=== PATIENT | male | born 1990 | race Hispanic/Latino ===

== ENCOUNTER 2017-12-11 19:35 | Emergency (ER) | payer MEDICAID, OTHER | END 2017-12-11 20:09 | disposition home or self-care (01) | LOC: EDH 19:35 | DX: R07.89 Other chest pain (principal); H92.01 Otalgia, right ear; M79.662 Pain in left lower leg; M79.661 Pain in right lower leg; Z72.0 Tobacco use | CPT/HCPCS: 99281 ==

== ENCOUNTER 2021-06-29 22:26 | Emergency (ER) | payer MEDICAID, OTHER ==
[~2021-06-29] VITALS: Ht 162.6 cm; Wt 68.0 kg
[2021-06-29] MEDS ORDERED: LIDOCAINE HCL MPF 1% 5ML VIAL ONE (23:29)
[2021-06-29] MEDS ORDERED: TETANUS/DIPHTHERIA TOXOID [ADULT] 0.5 ML VIAL IM ONE (23:46)
[2021-06-30] MEDS ORDERED: TETANUS/DIPHTHERIA TOXOID [ADULT] 0.5 ML VIAL IM ONE
[2021-06-30 01:51] VITALS: BP 125/76
== END 2021-06-30 01:55 | disposition home or self-care (01) ==
LOC: EDH 22:26
DX: S01.412A Laceration without foreign body of left cheek and temporomandibular area, initial encounter (principal); W01.110A Fall on same level from slipping, tripping and stumbling with subsequent striking against sharp glass, initial encounter; Y93.89 Activity, other specified; Y92.89 Other specified places as the place of occurrence of the external cause; Y99.8 Other external cause status
CPT/HCPCS: 12013; 70210; 72125; 90471; 90714; 99284; J3490